=== PATIENT | male | born 1965 | race Caucasian/White ===

== ENCOUNTER 2023-01-20 08:41 | Emergency (ER) | payer MEDICAID ==
[~2023-01-20] VITALS: Ht 152.4 cm; Wt 113.4 kg
[2023-01-20 09:14] VITALS: BP 155/85; PULSE 72; RESP 20; TEMP 98.7; O2SAT 99
[2023-01-20 10:07] LABS: BASOPHILS # (AUTO) 0.1 K/uL (0.00-0.22); BASOPHILS % (AUTO) 0.7 % (0.0-2.0); EOSINOPHILS # (AUTO) 1.1 K/uL (0-0.4); EOSINOPHILS % (AUTO) 12.2 % (0.0-4.0); HEMATOCRIT 41.9 % (36-52); HEMOGLOBIN 14.2 g/dL (12.0-18.0); LYMPHOCYTES # (AUTO) 2.5 K/uL (2.0-11.5); LYMPHOCYTES % (AUTO) 28.1 % (20.5-51.1); MEAN CORPUSCULAR HEMOGLOBIN 30 pg (27-31); MEAN CORPUSCULAR HGB CONC 34 g/dL (33-37); MEAN CORPUSCULAR VOLUME 87.5 fL (80-94); MONOCYTES # (AUTO) 0.5 K/uL (0.8-1.0); MONOCYTES % (AUTO) 5.6 % (1.7-9.3); NEUTROPHILS # (AUTO) 4.8 K/uL (1.8-7.7); NEUTROPHILS % (AUTO) 53.4 % (42.2-75.2); PLATELET COUNT (AUTO) 288 K/uL (140-450); RED BLOOD CELL COUNT(AUTO) 4.79 MIL/uL (4.20-6.10); RED CELL DISTRIBUTION WIDTH 13.9 % (11.6-13.7); WHITE BLOOD COUNT (AUTO) 8.9 K/uL (4.8-10.8)
[2023-01-20 10:18] LABS: ANION GAP 8.8 (8-16); CALCIUM 8.3 mg/dL (8.5-10.1); CARBON DIOXIDE 30.7 mmol/L (21-32); CREATININE 0.7 mg/dL (0.6-1.3); POTASSIUM 4.5 mmol/L (3.5-5.1)
[2023-01-20 10:21] LABS: INR 0.97 (0.8-1.2); PROTHROMBIN TIME 10.2 secs (10.8-13.4)
[2023-01-20 10:33] LABS: ALBUMIN 3.7 g/dL (3.4-5.0); BILIRUBIN,DIRECT 0.1 mg/dL (0.0-0.3); TOTAL BILIRUBIN 0.4 mg/dL (0.0-1.0); TOTAL PROTEIN, SERUM 7.3 g/dL (6.4-8.2)
[2023-01-20] MEDS ORDERED: SENN1TAB40 PO (11:24)
[2023-01-20] MEDS ORDERED: MIRABULK PO (11:24)
[2023-01-20 12:15] VITALS: BP 155/85; PULSE 72; RESP 20; TEMP 98.7; O2SAT 99
== END 2023-01-20 12:15 | disposition home or self-care (01) ==
LOC: MED 08:41
DX: K64.4 Residual hemorrhoidal skin tags (principal); Z79.899 Other long term (current) drug therapy
CPT/HCPCS: 36415; 80048; 80076; 83690; 85025; 85610; 85730; 86886; 86900; 86901; 99284